=== PATIENT | female | born 1995 | race African-American/Black ===

== ENCOUNTER 2018-05-09 07:24 | Outpatient (CLI) | payer MEDICAID ==
--- NOTE | 2018-05-09 09:08 | ULT ---
OBSTETRIC SONOGRAM: History: 2nd trimester . evaluation. FINDINGS: Multiple transabdominal sonographic views of the gravid uterus show an single intrauterine gestation in cephalic presentation. Cervix is closed and 5.5 cm. Grade 0 placenta is anterior. Amniotic fluid i s within normal limits. No gross intracranial abnormalities are apparent. spine and kidneys are intact as visualized. Four chamber heart shows motion at 153 beats/minute. Three vessel cord shows a normal insertion. Measurements are as follows: BPD 22 weeks 4 days HC 22 weeks 6 days AC 22 weeks 5 days FL 21 weeks 2 days Estimated date of delivery based on today's sonogram 09-09-18. Hadlock percentile 27%. IMPRESSION: Single intrauterine gestation with estimated gestation age by ultrasound of 22 weeks 3 days. POS: [facility]
== END 2018-05-09 07:25 | disposition home or self-care (01) ==
LOC: BICULT 07:24
PROVIDERS: ATTEND Family Medicine
DX: Z34.02 Encounter for supervision of normal first pregnancy, second trimester (principal); Z3A.22 22 weeks gestation of pregnancy
CPT/HCPCS: 76805

== ENCOUNTER 2018-08-22 10:14 | Observation (INO) | payer OTHER ==
[2018-08-22 11:40] VITALS: BMI 25.8
[2018-08-22] MEDS: Acetaminophen 500 MG TAB PO PRN (12:00)
[2018-08-22 12:09] LABS: #Basophils 0.1 thou/uL (0.0-0.2); #Eosinphils 0.1 thou/uL (0.0-0.7); #Lymphocytes 1.8 thou/uL (1.20-3.40); #Monocytes 0.7 thou/uL (0.11-0.59); #Neutrophils 8.4 thou/uL (1.40-6.50); %Eosinophils 0.6 % (0.0-10.0); %Monocytes 6.6 % (0.0-10.0); %Neutrophils 75.8 % (42.0-75.0); Hemoglobin 11.6 g/dL (12.0-16.0); Mean Corpuscular HGB CONC 35.4 g/dL (32.0-36.0); Mean Corpuscular Hemoglobin 30.3 pg (27.0-31.0); Mean Corpuscular Volume 85.7 fL (78.0-98.0); Mean Platelet Volume 8.2 fL (7.4-10.4); Platelet Count 298 thou/uL (130-400); RBC Distribution Width 11.7 % (11.5-14.5); Red Blood Cell (RBC) Count 3.84 mill/uL (4.20-5.40); White Blood Cell (WBC) Count 11.1 thou/uL (4.8-10.8)
[2018-08-22 12:31] LABS: Creatinine, Urine 48.4 mg/dL (47-110)
[2018-08-22 12:46] LABS: ALT (SGPT) 8 U/L (8-55); AST (SGOT) 11 U/L (5-34); Albumin 3.5 g/dL (3.5-5.0); Alkaline Phosphatase 161 U/L (40-150); Anion Gap 16 mmol/L (10-20); BUN (Urea Nitrogen) 4 mg/dL (7.0-18.7); Bilirubin, Total 0.4 mg/dL (0.2-1.2); Calc. Creatinine Clearance 193 mL/min (70-130); Calcium 9.4 mg/dL (7.8-10.44); Carbon Dioxide 18 mmol/L (22-29); Chloride 105 mmol/L (98-107); Estimated GFR-MDRD Greater than 90; Globulin 3.1 g/dL (2.4-3.5); Glucose 78 mg/dL (70-105); Potassium 3.6 mmol/L (3.5-5.1); Protein, Total 6.6 g/dL (6.0-8.3); Sodium 135 mmol/L (136-145)
--- NOTE | 2018-08-22 12:58 | ULT ---
Limited obstetrical ultrasound: 08/22/2018 HISTORY: Evaluate growth and amniotic fluid index TECHNIQUE: Multiplanar grayscale sonographic imaging of the gravid uterus obtained. FINDINGS: A single intrauterine gestation is present with a vertex presentation. Cervical length is e stimated at 4.1 cm. Placenta located anteriorly, demonstrating no evidence for previa or abruption. heart rate is 163 bpm. Amniotic fluid index is 10 cm. biometry: Biparietal diameter 9.2 cm 37 weeks 3 days Head circumference 33.4 cm 38 weeks 1 day Abdominal circumference 34.5 cm 38 weeks 3 days Femur length 7.2 cm 38 weeks 0 days Average age based on ultrasound is 37 weeks 6 days. Estimated date of delivery is 09/06/2018. Estimated weight is 3418 g +/- 506 g. IMPRESSION: Intrauterine gestation as detailed above.
[2018-08-23 08:37] VITALS: TEMP 98.7
[2018-08-23] MEDS: Acetaminophen 500 MG TAB PO PRN (11:58)
[2018-08-23 12:05] VITALS: BP 136/92
[2018-08-23 16:12] LABS: Urine Total Volume 2200 mL (600-1600)
[2018-08-23 16:33] LABS: Protein - 24 Hr 242 mg/24 hr (Less than 300); Protein, Urine 11 mg/dL (1-14)
== END 2018-08-23 18:21 | disposition home health service (06) ==
LOC: L&D/OP 10:14 → L&D 12:07
PROVIDERS: ADMIT Family Medicine; ATTEND Family Medicine
DX: O99.89 Other specified diseases and conditions complicating pregnancy, childbirth and the puerperium (principal); R03.0 Elevated blood-pressure reading, without diagnosis of hypertension; Z3A.36 36 weeks gestation of pregnancy; Z79.899 Other long term (current) drug therapy
CPT/HCPCS: 36415; 76805; 80053; 82570; 84156; 85025; G0378

== ENCOUNTER 2018-08-25 11:40 | Inpatient (IN) | payer OTHER ==
[2018-08-25 12:15] VITALS: BMI 27.7
[2018-08-25] MEDS: Lactated Ringer's 1,000 ML IV SCH ×2 (13:22→23:12)
[2018-08-25] MEDS ORDERED: Ondansetron PF 4 MG/2 ML Vial IVP PRN (13:31)
[2018-08-25] MEDS ORDERED: NS / Oxytocin 40 units/1000ml 1,000 ML IV PRN (13:31)
[2018-08-25] MEDS ORDERED: Lidocaine 1% (PF) 30 ML VIAL SC PRN (13:31)
[2018-08-25] MEDS ORDERED: Lactated Ringer's 1,000 ML IV SCH (13:45)
[2018-08-25] MEDS ORDERED: Ibuprofen 800 MG TAB PO PRN (13:47)
[2018-08-25 14:03] LABS: Hemoglobin 12.4 g/dL (12.0-16.0); Mean Corpuscular HGB CONC 36.3 g/dL (32.0-36.0); Mean Corpuscular Hemoglobin 30.8 pg (27.0-31.0); Mean Platelet Volume 8.5 fL (7.4-10.4); Platelet Count 291 thou/uL (130-400); RBC Distribution Width 11.7 % (11.5-14.5); Red Blood Cell (RBC) Count 4.03 mill/uL (4.20-5.40); White Blood Cell (WBC) Count 11.4 thou/uL (4.8-10.8)
[2018-08-25 15:10] LABS: Syphilis Antibody Nonreactive (Nonreactive); Syphilis Antibody Index 0.04 S/CO (<1.00 Non-Reactive)
[2018-08-25 15:11] LABS: HBSAg Index 0.75 S/CO (0-0.99); Hep B Surf Ag Non-Reactive S/CO (NonReactive)
[2018-08-25 15:39] LABS: ALT (SGPT) 7 U/L (8-55); AST (SGOT) 13 U/L (5-34); Albumin 3.7 g/dL (3.5-5.0); Alkaline Phosphatase 182 U/L (40-150); Anion Gap 15 mmol/L (10-20); BUN (Urea Nitrogen) 5 mg/dL (7.0-18.7); Bilirubin, Total 0.3 mg/dL (0.2-1.2); Calc. Creatinine Clearance 196 mL/min (70-130); Calcium 9.8 mg/dL (7.8-10.44); Carbon Dioxide 19 mmol/L (22-29); Chloride 106 mmol/L (98-107); Estimated GFR-MDRD Greater than 90; Globulin 2.8 g/dL (2.4-3.5); Glucose 82 mg/dL (70-105); Potassium 3.8 mmol/L (3.5-5.1); Protein, Total 6.5 g/dL (6.0-8.3); Sodium 136 mmol/L (136-145)
[2018-08-25] MEDS: Misoprostol 100 MCG TAB PO SCH ×2 (16:31→20:32)
[2018-08-25] MEDS ORDERED: diphenhydrAMINE 25 MG CAP PO PRN (20:08)
[2018-08-26] MEDS: Misoprostol 100 MCG TAB PO SCH ×2 (00:31→05:03)
[2018-08-26] MEDS ORDERED: Acetaminophen 500 MG TAB PO PRN (12:24)
[2018-08-26] MEDS ORDERED: Misoprostol 100 MCG TAB PO SCH (18:30)
[2018-08-26] MEDS: Lactated Ringer's 1,000 ML IV SCH (18:36)
[2018-08-27] MEDS ORDERED: NS w/ Oxytocin 10 units 500 ML IVPB SCH (02:00)
[2018-08-27] MEDS ORDERED: Fentanyl 4 mcg/Bup 0.1% Cadd 100 ML ONE ×2 (05:37→12:02)
[2018-08-27] MEDS ORDERED: Ondansetron PF 4 MG/2 ML Vial IVP PRN ×2 (06:25→15:10)
[2018-08-27] MEDS ORDERED: Lactated Ringer's 500 ML IV PRN (06:25)
[2018-08-27] MEDS ORDERED: ePHEDrine/0.9% NaCl/PF SYRINGE 50 mg/10 ml SLOW IVP PRN (06:25)
[2018-08-27] MEDS ORDERED: Promethazine HCl 25 MG/ML VIAL IM PRN (06:25)
[2018-08-27] MEDS ORDERED: diphenhydrAMINE 50 MG/ML VIAL IVP PRN (06:25)
[2018-08-27] MEDS ORDERED: Naloxone HCl 0.4 mg/ml Vial IVP PRN ×2 (06:25)
[2018-08-27] MEDS ORDERED: Eucerin (Mineral Oil/Petrolatum,White) 30 gm Jar TOP PRN (06:25)
[2018-08-27] MEDS ORDERED: Acetaminophen 325 MG TAB PO PRN (06:25)
[2018-08-27] MEDS ORDERED: Communication Order-Pharmacy FS SCH (06:30)
[2018-08-27] MEDS ORDERED: Fentanyl 4 mcg/Bupivacaine 0.1% Cassette 100 ML EPIDURAL SCH (06:30)
[2018-08-27] MEDS: Lactated Ringer's 1,000 ML IV SCH ×3 (06:49→16:37)
[2018-08-27] MEDS ORDERED: Bupivacaine 0.25% HCL 30 ML VIAL ONE (11:11)
[2018-08-27] MEDS ORDERED: Sodium Chloride 0.9% (PF) 10 ML VIAL ONE (11:11)
[2018-08-27] MEDS ORDERED: Lidocaine 2% MPF 10 ML AMP (For Epidural Use) ONE (11:11)
[2018-08-27] MEDS ORDERED: Bupivacaine/Epinephrine 0.25% 30 ML VIAL ONE (11:11)
[2018-08-27] MEDS ORDERED: Adacel (T-DAP) 0.5 ML SYRINGE IM ONE (15:10)
[2018-08-27] MEDS ORDERED: diphenhydrAMINE 25 MG CAP PO PRN (15:10)
[2018-08-27] MEDS ORDERED: Benzocaine-Menthol 82.5 ML CAN TOP PRN (15:10)
[2018-08-27] MEDS ORDERED: Bisacodyl 10 MG SUPP PR PRN (15:10)
[2018-08-27] MEDS ORDERED: HYDROcodone/Acetaminophen 5/325 mg Tablet PO PRN ×2 (15:10)
[2018-08-27] MEDS ORDERED: Preparation H Ointment 28 GM TUBE PR PRN (15:10)
[2018-08-27] MEDS ORDERED: cloNIDine 0.1 MG TAB PO PRN (15:10)
[2018-08-27] MEDS ORDERED: Lanolin Ointment 7 GM TUBE TOP PRN (15:10)
[2018-08-27] MEDS ORDERED: NS / Oxytocin 40 units/1000ml 1,000 ML IV SCH (15:10)
[2018-08-27] MEDS ORDERED: Milk Of Magnesia 30 ML UDCUP PO PRN (15:10)
[2018-08-27] MEDS: Ferrous Sulfate 325 MG TAB PO SCH (18:06)
[2018-08-27] MEDS: Ibuprofen 800 MG TAB PO SCH (19:31)
[2018-08-27] MEDS: Docusate Calcium (SURFAK) 240 MG CAP PO SCH (19:31)
[2018-08-27] MEDS ORDERED: Sodium Chloride 0.9% 10 ML ONE (21:10)
[2018-08-28] MEDS: Ibuprofen 800 MG TAB PO SCH ×3 (05:23→22:33)
[2018-08-28 05:30] LABS: Hemoglobin 9.6 g/dL (12.0-16.0); Mean Corpuscular HGB CONC 34.3 g/dL (32.0-36.0); Mean Corpuscular Hemoglobin 30.4 pg (27.0-31.0); Mean Corpuscular Volume 88.6 fL (78.0-98.0); Mean Platelet Volume 7.9 fL (7.4-10.4); Platelet Count 190 thou/uL (130-400); RBC Distribution Width 11.8 % (11.5-14.5); Red Blood Cell (RBC) Count 3.16 mill/uL (4.20-5.40); White Blood Cell (WBC) Count 10.8 thou/uL (4.8-10.8)
[2018-08-28] MEDS: Prenatal Vitamin 1 TAB PO SCH (10:26)
[2018-08-28] MEDS: Docusate Calcium (SURFAK) 240 MG CAP PO SCH ×2 (10:27→22:34)
[2018-08-28] MEDS: Ferrous Sulfate 325 MG TAB PO SCH ×2 (10:27→18:04)
[2018-08-29 07:50] VITALS: BP 131/89; TEMP 97.6
[2018-08-29] MEDS: Ferrous Sulfate 325 MG TAB PO SCH (08:27)
[2018-08-29] MEDS: Ibuprofen 800 MG TAB PO SCH ×2 (08:27→14:23)
[2018-08-29] MEDS: Docusate Calcium (SURFAK) 240 MG CAP PO SCH (08:27)
[2018-08-29] MEDS: Prenatal Vitamin 1 TAB PO SCH (08:27)
== END 2018-08-29 17:40 | disposition home or self-care (01) | DRG 807 ==
LOC: L&D/OP 11:40 → L&D 21:56 → 3SW 08-27 16:36
PROVIDERS: ADMIT Family Medicine; ATTEND Family Medicine
PROC: 10E0XZZ Delivery of Products of Conception, External Approach (ICD-10-PCS; principal; 2018-08-27)
PROC: 0W8NXZZ Division of Female Perineum, External Approach (ICD-10-PCS; 2018-08-27)
PROC: 3E033VJ Introduction of Other Hormone into Peripheral Vein, Percutaneous Approach (ICD-10-PCS; 2018-08-27)
PROC: 0UQMXZZ Repair Vulva, External Approach (ICD-10-PCS; 2018-08-27)
PROC: 10907ZC Drainage of Amniotic Fluid, Therapeutic from Products of Conception, Via Natural or Artificial Opening (ICD-10-PCS; 2018-08-27)
DX: O13.4 Gestational [pregnancy-induced] hypertension without significant proteinuria, complicating childbirth (principal); Z37.0 Single live birth; Z3A.37 37 weeks gestation of pregnancy
CPT/HCPCS: 36415; 51702; 80053; 85027; 86780; 86850; 86900; 86901; 87340; 90715; J2001; J2405; J2590; Q0163; S0020